=== PATIENT | male | born 1960 | race Caucasian/White ===

== ENCOUNTER 2017-02-18 16:40 | Observation (INO) | payer OTHER ==
[~2017-02-18] VITALS: Ht 180.3 cm; Wt 86.6 kg
[~2017-02-18 16:40] MED LIST: KEFLEX500 M1 PO; NAPROSYN500 MG PO; PENICILLN VK500 MG PO
[2017-02-18 17:13] LABS: HEMATOCRIT 47.2 % (39.0-50.0); HEMOGLOBIN 16.5 g/dl (14.0-18.0); IMMATURE GRANULOCYTES 0.2 % (0.0-1.0); MEAN CELL VOLUME 88.2 fL CALC (80.0-100.0); MEAN CORPUSCULAR HGB 30.8 pG CALC (26.0-32.0); NEUT# 7.7 thou/uL (1.82-7.42); RED BLOOD COUNT 5.35 mill/uL (4.70-6.10)
[2017-02-18 17:25] LABS: ALBUMIN 4.9 g/dL (3.2-5.0); ALKALINE PHOSPHATASE 55 u/l (38-126); ANION GAP 20 (6-22 (CALC)); BILIRUBIN, TOTAL 0.7 mg/dL (0.0-1.4); BUN 24 mg/dL (9-20); BUN/CREATININE RATIO 18 (12-20 (CALC)); CALCIUM 9.3 mg/dL (8.4-10.2); CARBON DIOXIDE 21 mmol/l (22-30); CHLORIDE 107 mmol/l (95-108); CREATININE 1.3 mg/dL (0.7-1.3); GFR 57 ML/MIN (>=60 (CALC)); GFR FOR AFR.AMER. > 60 ML/MIN (>=60 (CALC)); GLUCOSE 102 mg/dL (75-110); POTASSIUM 4.8 mmol/l (3.5-5.1); SGOT/AST 27 u/l (17-59); SGPT/ALT 38 u/l (21-72); SODIUM 144 mmol/l (137-146); TOTAL PROTEIN 7.9 g/dL (6.3-8.2)
[2017-02-18 17:36] LABS: MYOGLOBIN 49 ng/mL (0 - 121)
[2017-02-18 19:25] LABS: URINE BILIRUBIN - DIPSTICK NEGATIVE (NEGATIVE); URINE BLOOD DIPSTICK NEGATIVE (NEGATIVE); URINE COLOR YELLOW; URINE GLUCOSE - DIPSTICK NEGATIVE (NEGATIVE); URINE KETONE TRACE mg/dL (NEGATIVE); URINE LEUK ESTERASE NEGATIVE (NEGATIVE); URINE NITRITE - DIPSTICK NEGATIVE (Negative); URINE PH 5.5 (4.5-8.0); URINE PROTEIN - DIPSTICK NEGATIVE (NEG-TRACE); URINE SPECIFIC GRAVITY >=1.030; URINE UROBILINOGEN - DIPSTICK 0.2 E.U./dL (0.2)
[2017-02-18 19:27] LABS: URINE CLARITY CLEAR
[2017-02-19 00:20] VITALS: BP 116/73
[2017-02-19 04:30] VITALS: BP 114/72
[2017-02-19 08:41] LABS: CHOLESTEROL HDL RATIO 5.3 (<4.4 (CALC)); MAGNESIUM 2.2 mg/dL (1.6-2.3)
[2017-02-19 08:58] VITALS: BP 115/79
[2017-02-19 11:20] VITALS: BP 116/81
[2017-02-19] MEDS ORDERED: ASPIRIN ADULT L81 M2 PO (13:12)
== END 2017-02-19 15:17 | disposition home or self-care (01) | DRG 313 ==
LOC: ED 16:40 → ED-I 23:00 → ED 23:53 → MS2 23:54
PROVIDERS: Emergency Medicine; Nurse Practitioner Family; ADMIT Internal Medicine; ATTEND Internal Medicine
DX: R07.89 Other chest pain (principal); D17.1 Benign lipomatous neoplasm of skin and subcutaneous tissue of trunk; E86.0 Dehydration; R47.1 Dysarthria and anarthria; H93.12 Tinnitus, left ear; R42 Dizziness and giddiness; M79.5 Residual foreign body in soft tissue
CPT/HCPCS: G0378; J1650

== ENCOUNTER 2018-01-22 13:53 | Emergency (ER) | payer OTHER ==
[~2018-01-22] VITALS: Ht 180.3 cm; Wt 85.0 kg
[~2018-01-22 13:53] MED LIST changes: +ASPIRIN ADULT L81 M2 PO; +ESCITALOPRAM OX10 MG PO; +KEPPRA500 M2 PO; +LISINOPRIL10 MG PO; +LOPID600 MG PO; +OMEPRAZOLE10 MG PO; +XYZAL5 MG PO
[2018-01-22 15:07] LABS: IMMATURE GRANULOCYTES 0.2 % (0.0-5.0); MEAN CELL VOLUME 89.1 fL CALC (80.0-100.0); MEAN CORPUSCULAR HGB 30.5 pG CALC (26.0-32.0); MEAN CORPUSCULAR HGB CONC 34.3 g/L CALC (32.0-36.0); NEUT# 2.48 thou/uL (1.82-7.42); RED BLOOD COUNT 4.85 mill/uL (4.70-6.10); RED CELL DISTRI WIDTH 12.3 % (11.5-15.5)
[2018-01-22 15:19] LABS: HEMATOCRIT 43.2 % (39.0-50.0); HEMOGLOBIN 14.8 g/dl (14.0-18.0)
[2018-01-22 15:27] LABS: ALBUMIN 4.2 g/dL (3.2-5.0); ALKALINE PHOSPHATASE 48 u/l (38-126); ANION GAP 13 (6-22 (CALC)); BILIRUBIN, TOTAL 0.7 mg/dL (0.0-1.4); BUN 19 mg/dL (9-20); BUN/CREATININE RATIO 13 (12-20 (CALC)); CARBON DIOXIDE 26 mmol/l (22-30); CHLORIDE 107 mmol/l (95-108); CREATININE 1.4 mg/dL (0.7-1.3); GFR 52 ML/MIN (>=60 (CALC)); GFR FOR AFR.AMER. > 60 ML/MIN (>=60 (CALC)); POTASSIUM 4.4 mmol/l (3.5-5.1); SGOT/AST 26 u/l (17-59); SODIUM 142 mmol/l (137-146); TOTAL PROTEIN 7.5 g/dL (6.3-8.2)
[2018-01-22 15:38] LABS: MYOGLOBIN 43 ng/mL (0 - 121)
[2018-01-22] MEDS ORDERED: FAMOTIDINE20 M1 PO (16:18)
[2018-01-22] MEDS ORDERED: TOPIRAMATE25 MG PO (16:19)
[2018-01-22] MEDS ORDERED: CLONAZEPAM0.5 MG PO (16:19)
[2018-01-22 16:42] LABS: URINE BILIRUBIN - DIPSTICK NEGATIVE (NEGATIVE); URINE BLOOD DIPSTICK NEGATIVE (NEGATIVE); URINE CLARITY CLEAR; URINE COLOR YELLOW; URINE GLUCOSE - DIPSTICK NEGATIVE (NEGATIVE); URINE KETONE NEGATIVE (NEGATIVE); URINE LEUK ESTERASE NEGATIVE (NEGATIVE); URINE NITRITE - DIPSTICK NEGATIVE (Negative); URINE PH 5.5 (4.5-8.0); URINE PROTEIN - DIPSTICK NEGATIVE (NEG-TRACE); URINE SPECIFIC GRAVITY >=1.030; URINE UROBILINOGEN - DIPSTICK 0.2 E.U./dL (0.2)
[2018-01-22] MEDS ORDERED: NAPROSYN500 MG PO (16:44)
[2018-01-22 17:18] VITALS: BP 119/69
== END 2018-01-22 17:18 | disposition home or self-care (01) ==
LOC: ED 13:53
PROVIDERS: Emergency Medicine
DX: G40.909 Epilepsy, unspecified, not intractable, without status epilepticus (principal); R51 Headache; I10 Essential (primary) hypertension; E78.5 Hyperlipidemia, unspecified; F41.9 Anxiety disorder, unspecified; K21.9 Gastro-esophageal reflux disease without esophagitis

== ENCOUNTER 2018-09-15 10:29 | Emergency (ER) | payer OTHER ==
[~2018-09-15] VITALS: Ht 180.3 cm; Wt 80.0 kg
[~2018-09-15 10:29] MED LIST changes: +CLONAZEPAM0.5 MG PO; +FAMOTIDINE20 M1 PO; +TOPIRAMATE25 MG PO
[2018-09-15] MEDS ORDERED: KEPPRA1000 MG PO (10:37)
[2018-09-15] MEDS ORDERED: LEXAPRO10 MG PO (10:39)
[2018-09-15 11:07] LABS: HEMATOCRIT 46.6 % (39.0-50.0); HEMOGLOBIN 15.7 g/dl (14.0-18.0); IMMATURE GRANULOCYTES 0.1 % (0.0-5.0); MEAN CELL VOLUME 89.8 fL CALC (80.0-100.0); MEAN CORPUSCULAR HGB 30.3 pG CALC (26.0-32.0); MEAN CORPUSCULAR HGB CONC 33.7 g/L CALC (32.0-36.0); NEUT# 3.54 thou/uL (1.82-7.42); RED BLOOD COUNT 5.19 mill/uL (4.70-6.10); RED CELL DISTRI WIDTH 12.2 % (11.5-15.5)
[2018-09-15 11:15] LABS: URINE BILIRUBIN - DIPSTICK NEGATIVE (NEGATIVE); URINE BLOOD DIPSTICK NEGATIVE (NEGATIVE); URINE COLOR YELLOW; URINE GLUCOSE - DIPSTICK NEGATIVE (NEGATIVE); URINE KETONE NEGATIVE (NEGATIVE); URINE LEUK ESTERASE NEGATIVE (NEGATIVE); URINE NITRITE - DIPSTICK NEGATIVE (Negative); URINE PROTEIN - DIPSTICK NEGATIVE (NEG-TRACE); URINE SPECIFIC GRAVITY 1.025; URINE UROBILINOGEN - DIPSTICK 0.2 E.U./dL (0.2)
[2018-09-15 11:30] LABS: ALBUMIN 4.4 g/dL (3.2-5.0); BILIRUBIN, TOTAL 0.5 mg/dL (0.0-1.4); CREATININE 1.5 mg/dL (0.7-1.3); TOTAL PROTEIN 7.1 g/dL (6.3-8.2)
[2018-09-15] MEDS ORDERED: DULCOLAX10 MG RE (14:45)
[2018-09-15] MEDS ORDERED: MIRALAX3350 N1 PO (14:45)
[2018-09-15 14:48] VITALS: BP 114/77
== END 2018-09-15 14:57 | disposition home or self-care (01) ==
LOC: ED 10:29
PROVIDERS: Emergency Medicine
DX: K59.00 Constipation, unspecified (principal); K80.50 Calculus of bile duct without cholangitis or cholecystitis without obstruction; I10 Essential (primary) hypertension

== ENCOUNTER 2018-11-19 12:50 | Emergency (ER) | payer OTHER ==
[~2018-11-19] VITALS: Ht 180.3 cm; Wt 75.0 kg
[~2018-11-19 12:50] MED LIST changes: +DULCOLAX10 MG RE; +KEPPRA1000 MG PO; +LEXAPRO10 MG PO; +MIRALAX3350 N1 PO
[2018-11-19 13:31] LABS: HEMATOCRIT 42.2 % (39.0-50.0); HEMOGLOBIN 14.4 g/dl (14.0-18.0); IMMATURE GRANULOCYTES 0.3 % (0.0-5.0); MEAN CORPUSCULAR HGB 30.4 pG CALC (26.0-32.0); MEAN CORPUSCULAR HGB CONC 34.1 g/L CALC (32.0-36.0); NEUT# 3.89 thou/uL (1.82-7.42); RED BLOOD COUNT 4.74 mill/uL (4.70-6.10); RED CELL DISTRI WIDTH 12.4 % (11.5-15.5)
[2018-11-19 13:48] LABS: ALBUMIN 4.3 g/dL (3.2-5.0); ALKALINE PHOSPHATASE 45 u/l (38-126); ANION GAP 13 (6-22 (CALC)); BILIRUBIN, TOTAL 0.6 mg/dL (0.0-1.4); BUN 25 mg/dL (9-20); BUN/CREATININE RATIO 17 (12-20 (CALC)); CARBON DIOXIDE 22 mmol/l (22-30); CHLORIDE 109 mmol/l (95-108); CREATININE 1.5 mg/dL (0.7-1.3); GFR 48 ML/MIN (>=60 (CALC)); GFR FOR AFR.AMER. 58 ML/MIN (>=60 (CALC)); LIPASE 155 u/l (23-300); POTASSIUM 4.2 mmol/l (3.5-5.1); SGOT/AST 25 u/l (17-59); SODIUM 139 mmol/l (137-146); TOTAL PROTEIN 7.2 g/dL (6.3-8.2)
[2018-11-19 18:11] VITALS: BP 123/77
[2018-11-19] MEDS ORDERED: CEPHALEXIN500 M1 PO (18:20)
== END 2018-11-19 18:25 | disposition home or self-care (01) ==
LOC: ED 12:50
PROVIDERS: Family Medicine
DX: S61.213A Laceration without foreign body of left middle finger without damage to nail, initial encounter (principal); S81.012A Laceration without foreign body, left knee, initial encounter; S70.02XA Contusion of left hip, initial encounter; S90.02XA Contusion of left ankle, initial encounter; K40.90 Unilateral inguinal hernia, without obstruction or gangrene, not specified as recurrent; G40.909 Epilepsy, unspecified, not intractable, without status epilepticus; I10 Essential (primary) hypertension; W11.XXXA Fall on and from ladder, initial encounter; Y92.009 Unspecified place in unspecified non-institutional (private) residence as the place of occurrence of the external cause

== ENCOUNTER 2018-12-16 09:28 | Day surgery (SDC) | payer OTHER ==
[~2018-12-16 09:28] MED LIST changes: +CEPHALEXIN500 M1 PO; +DESVENLAFAXINE50 M2 PO; +EMGALITY120 MG/M1 IM; +IBUPROFEN600 MG PO; +MULT VITAMIN PO; +PROTONIX20 M1 PO
[2018-12-16 10:34] VITALS: BP 137/79
[2018-12-16] MEDS ORDERED: CALCI XX (10:56)
[2018-12-16] MEDS ORDERED: MAGNESIU XX (10:56)
[2018-12-16] MEDS ORDERED: ZIN2 MT (10:57)
== END 2018-12-16 10:15 ==
LOC: ORM 09:28
PROVIDERS: ATTEND Surgery
DX: K40.20 Bilateral inguinal hernia, without obstruction or gangrene, not specified as recurrent (principal); I10 Essential (primary) hypertension; R56.9 Unspecified convulsions; Z53.09 Procedure and treatment not carried out because of other contraindication

== ENCOUNTER 2018-12-16 10:20 | Emergency (ER) | payer OTHER ==
[~2018-12-16] VITALS: Ht 180.3 cm; Wt 90.0 kg
[2018-12-16] MEDS ORDERED: MAGNESIU XX (10:56)
[2018-12-16] MEDS ORDERED: CALCI XX (10:56)
[2018-12-16] MEDS ORDERED: ZIN2 MT (10:57)
[2018-12-16 11:22] LABS: HEMOGLOBIN 14.7 g/dl (14.0-18.0); IMMATURE GRANULOCYTES 0.3 % (0.0-5.0); MEAN CELL VOLUME 89.4 fL CALC (80.0-100.0); MEAN CORPUSCULAR HGB 30.6 pG CALC (26.0-32.0); MEAN CORPUSCULAR HGB CONC 34.2 g/L CALC (32.0-36.0); NEUT# 3.62 thou/uL (1.82-7.42); RED BLOOD COUNT 4.81 mill/uL (4.70-6.10); RED CELL DISTRI WIDTH 12.5 % (11.5-15.5)
[2018-12-16 11:41] LABS: ALBUMIN 4.2 g/dL (3.2-5.0); ALKALINE PHOSPHATASE 50 u/l (38-126); ANION GAP 13 (6-22 (CALC)); BILIRUBIN, TOTAL 0.6 mg/dL (0.0-1.4); BUN 23 mg/dL (9-20); BUN/CREATININE RATIO 16 (12-20 (CALC)); CARBON DIOXIDE 23 mmol/l (22-30); CHLORIDE 108 mmol/l (95-108); CREATININE 1.4 mg/dL (0.7-1.3); ETHYL ALCOHOL 0 mg/dl (0-30); GFR 52 ML/MIN (>=60 (CALC)); GFR FOR AFR.AMER. > 60 ML/MIN (>=60 (CALC)); LIPASE 135 u/l (23-300); MAGNESIUM 2.2 mg/dL (1.6-2.3); POTASSIUM 4.7 mmol/l (3.5-5.1); SGOT/AST 23 u/l (17-59); SODIUM 140 mmol/l (137-146); TOTAL PROTEIN 6.9 g/dL (6.3-8.2)
[2018-12-16 11:50] LABS: ACT PARTIAL THROMBO TIME 25.8 SECONDS (20.0-32.5); PROTHROMBIN TIME 10.6 SECONDS (9.0-12.5)
[2018-12-16 11:59] LABS: URINE BILIRUBIN - DIPSTICK NEGATIVE (NEGATIVE); URINE BLOOD DIPSTICK NEGATIVE (NEGATIVE); URINE COLOR YELLOW; URINE GLUCOSE - DIPSTICK NEGATIVE (NEGATIVE); URINE KETONE NEGATIVE (NEGATIVE); URINE LEUK ESTERASE NEGATIVE (NEGATIVE); URINE NITRITE - DIPSTICK NEGATIVE (Negative); URINE PROTEIN - DIPSTICK NEGATIVE (NEG-TRACE); URINE SPECIFIC GRAVITY 1.015; URINE UROBILINOGEN - DIPSTICK 0.2 E.U./dL (0.2)
[2018-12-16 12:00] LABS: BARBITURATES NEGATIVE (NEGATIVE); COCAINE NEGATIVE (NEGATIVE); METHADONE NEGATIVE (NEGATIVE); OXCYCODONE NEGATIVE (NEGATIVE); TETRAHYDROCANNABIONOL NEGATIVE (NEGATIVE); TRICYLIC ANTIDEPRESSANTS NEGATIVE (NEGATIVE)
[2018-12-16 12:22] VITALS: BP 106/57
== END 2018-12-16 12:30 | disposition home or self-care (01) ==
LOC: ED 10:20
DX: R56.9 Unspecified convulsions (principal); I10 Essential (primary) hypertension
CPT/HCPCS: J1953

== ENCOUNTER 2018-12-23 08:49 | Day surgery (SDC) | payer OTHER ==
[~2018-12-23 08:49] MED LIST changes: +CALCI XX; +MAGNESIU XX; +ZIN2 MT
[2018-12-23] MEDS ORDERED: PERCOCET 5/325M1 TAB PO (11:45)
[2018-12-23 12:58] VITALS: BP 109/79
== END 2018-12-23 13:20 | disposition home or self-care (01) ==
LOC: ORM 08:49
PROVIDERS: ATTEND Surgery
DX: K40.20 Bilateral inguinal hernia, without obstruction or gangrene, not specified as recurrent (principal); I10 Essential (primary) hypertension
CPT/HCPCS: C1781; J0131; J2710

== ENCOUNTER 2021-10-17 09:34 | Day surgery (SDC) | payer MEDICARE, MEDICAID ==
[~2021-10-17] VITALS: Ht 180.3 cm; Wt 89.4 kg
[~2021-10-17 09:34] MED LIST changes: +BOTOX; +BRIVIACT100 MG PO; +PEPCID AC10 MG PO; +PERCOCET 5/325M1 TAB PO; +VALIUM2 MG PO
[2021-10-17] MEDS ORDERED: PERCOCET 5/321 COMBO PO (12:58)
[2021-10-17 13:47] VITALS: BP 122/79
== END 2021-10-17 13:35 | disposition home or self-care (01) ==
LOC: ORM 09:34
PROVIDERS: ATTEND Surgery
PROC: 0JB70ZZ Excision of Back Subcutaneous Tissue and Fascia, Open Approach (ICD-10-PCS; principal; 2021-10-17)
PROC: 0KT Muscles, Resection (ICD-10-PCS; 2021-10-17)
PROC: 0HB6XZZ Excision of Back Skin, External Approach (ICD-10-PCS; 2021-10-17)
DX: D17.79 Benign lipomatous neoplasm of other sites (principal); D17.1 Benign lipomatous neoplasm of skin and subcutaneous tissue of trunk; D22.5 Melanocytic nevi of trunk; G40.909 Epilepsy, unspecified, not intractable, without status epilepticus; F41.9 Anxiety disorder, unspecified; K21.9 Gastro-esophageal reflux disease without esophagitis
CPT/HCPCS: J0131

== ENCOUNTER 2021-10-25 16:58 | Emergency (ER) | payer MEDICARE, MEDICAID ==
[~2021-10-25] VITALS: Ht 180.3 cm; Wt 88.4 kg
[~2021-10-25 16:58] MED LIST changes: +PERCOCET 5/321 COMBO PO
[2021-10-25 17:04] VITALS: BP 149/91
[2021-10-25 17:30] VITALS: BP 120/86
[2021-10-25 17:41] VITALS: BP 120/86
== END 2021-10-25 18:03 | disposition home or self-care (01) ==
LOC: ED 16:58
DX: T81.31XA Disruption of external operation (surgical) wound, not elsewhere classified, initial encounter (principal); I10 Essential (primary) hypertension; E78.5 Hyperlipidemia, unspecified; F41.9 Anxiety disorder, unspecified; K21.9 Gastro-esophageal reflux disease without esophagitis; Y83.9 Surgical procedure, unspecified as the cause of abnormal reaction of the patient, or of later complication, without mention of misadventure at the time of the procedure

== ENCOUNTER 2022-04-30 12:48 | Emergency (ER) | payer MEDICARE, MEDICAID ==
[~2022-04-30] VITALS: Ht 180.3 cm; Wt 84.8 kg
[2022-04-30] VITALS (7 sets, daily range): BP systolic 27–141; BP diastolic 11–86
[2022-04-30 13:23] LABS: BASO% 0.6 % (0-3); EOS% 2.1 % (0-8); HEMATOCRIT 48.1 % (39.0-50.0); HEMOGLOBIN 15.9 g/dl (14.0-18.0); IMMATURE GRANULOCYTES 0.3 % (0.0-5.0); LYMPH% 15.8 % (15-41); MEAN CELL VOLUME 88.9 fL CALC (80.0-100.0); MEAN CORPUSCULAR HGB 29.4 pG CALC (26.0-32.0); MEAN CORPUSCULAR HGB CONC 33.1 g/dL CAL (32.0-36.0); MONO% 5.9 % (2-13); NEUT# 6.67 thou/uL (1.82-7.42); NEUT% 75.3 % (42-76); RED BLOOD COUNT 5.41 mill/uL (4.70-6.10); RED CELL DISTRI WIDTH 12.3 % (11.5-15.5)
[2022-04-30 13:34] LABS: ALBUMIN 4.4 g/dL (3.2-5.0); ALKALINE PHOSPHATASE 46 u/l (38-126); ANION GAP 11 (6-22 (CALC)); BILIRUBIN, TOTAL 0.7 mg/dL (0.2-1.3); BUN 21 mg/dL (8-23); BUN/CREATININE RATIO 15 (12-20 (CALC)); CARBON DIOXIDE 19 mmol/l (22-30); CHLORIDE 110 mmol/l (95-108); CREATININE 1.4 mg/dL (0.7-1.3); GFR FOR AFR.AMER. > 60 ML/MIN (>=60 (CALC)); GFR OTHER RACES 51 ML/MIN (>=60 (CALC)); POTASSIUM 4.5 mmol/l (3.5-5.1); SGOT/AST 30 u/l (19-48); SODIUM 135 mmol/l (137-146); TOTAL PROTEIN 7.2 g/dL (6.3-8.2)
[2022-04-30] MEDS ORDERED: TRAMADOL HYDROC50 M1 PO (15:14)
== END 2022-04-30 15:45 | disposition home or self-care (01) ==
LOC: ED 12:48
PROVIDERS: Family Medicine
PROC: 2W3CX1Z Immobilization of Right Lower Arm using Splint (ICD-10-PCS; principal; 2022-04-30)
DX: S52.611A Displaced fracture of right ulna styloid process, initial encounter for closed fracture (principal); M54.2 Cervicalgia; M54.6 Pain in thoracic spine; M54.50 Low back pain, unspecified; I10 Essential (primary) hypertension; E78.5 Hyperlipidemia, unspecified; F41.9 Anxiety disorder, unspecified; K21.9 Gastro-esophageal reflux disease without esophagitis; R07.89 Other chest pain; W11.XXXA Fall on and from ladder, initial encounter; Y93.H3 Activity, building and construction; Y92.009 Unspecified place in unspecified non-institutional (private) residence as the place of occurrence of the external cause

== ENCOUNTER 2024-04-20 10:27 | Emergency (ER) | payer MEDICARE, MEDICAID ==
[~2024-04-20] VITALS: Ht 180.3 cm; Wt 83.9 kg
[~2024-04-20 10:27] MED LIST changes: +TRAMADOL HYDROC50 M1 PO
[2024-04-20 10:40] VITALS: BP 158/94
[2024-04-20 10:45] VITALS: BP 142/88
[2024-04-20 11:30] LABS: BASO% 0.8 % (0-3); EOS% 3.8 % (0-8); HEMATOCRIT 50.4 % (39.0-50.0); HEMOGLOBIN 16.7 g/dl (14.0-18.0); IMMATURE GRANULOCYTES 0.3 % (0.0-5.0); MEAN CELL VOLUME 90.3 fL CALC (80.0-100.0); MEAN CORPUSCULAR HGB 29.9 pG CALC (26.0-32.0); MEAN CORPUSCULAR HGB CONC 33.1 g/dL CAL (32.0-36.0); NEUT# 4.55 thou/uL (1.82-7.42); NEUT% 60.1 % (42-76); RED BLOOD COUNT 5.58 mill/uL (4.70-6.10); RED CELL DISTRI WIDTH 12.4 % (11.5-15.5)
[2024-04-20 11:56] LABS: ALBUMIN 4.4 g/dL (3.2-5.0); BILIRUBIN, TOTAL 0.9 mg/dL (0.2-1.3); CREATININE 1.5 mg/dL (0.7-1.3); POTASSIUM 4.6 mmol/l (3.5-5.1); TOTAL PROTEIN 7.1 g/dL (6.3-8.2)
[2024-04-20 12:45] VITALS: BP 142/88
== END 2024-04-20 12:45 | disposition home or self-care (01) ==
LOC: ED 10:27
PROVIDERS: Family Medicine
DX: R42 Dizziness and giddiness (principal); I10 Essential (primary) hypertension; E78.5 Hyperlipidemia, unspecified; F41.9 Anxiety disorder, unspecified; K21.9 Gastro-esophageal reflux disease without esophagitis